=== PATIENT | female | born 1955 | race Caucasian/White ===

== ENCOUNTER 2022-12-01 12:54 | Emergency (ER) | payer OTHER, BC ==
[~2022-12-01] VITALS: Ht 157.5 cm; Wt 83.9 kg
[2022-12-01] MEDS ORDERED: CHLORTHALIDONE25 MG PO (13:10)
[2022-12-01] MEDS ORDERED: TOPROL XL100 M1 PO (13:10)
[2022-12-01] MEDS ORDERED: LOSARTAN POTAS100 MG PO (13:12)
[2022-12-01] MEDS ORDERED: PRAVASTATIN SOD40 MG PO (13:13)
[2022-12-01] MEDS ORDERED: CELEXA10 MG PO (13:51)
== END 2022-12-01 14:20 | disposition home or self-care (01) ==
LOC: ER 12:54
DX: F41.9 Anxiety disorder, unspecified (principal); I10 Essential (primary) hypertension; F32.A Depression, unspecified